=== PATIENT | female | born 1990 | race Caucasian/White ===

== ENCOUNTER 2022-04-15 18:00 | Emergency (ER) | payer BC, OTHER ==
[2022-04-15 18:32] VITALS: BP 145/98; PULSE 85; RESP 18; TEMP 98.1; BMI 20.9
[2022-04-15] MEDS ORDERED: KETOROLAC TROMETHAMINE 15 MG/ML VIAL IVPUSH ONE (18:34)
[2022-04-15] MEDS ORDERED: MAG HYDROX/AL HYDROX/SIMETH -MYLANTA- ORAL SUSPENSION PO ONE (18:45)
[2022-04-15] MEDS ORDERED: FAMOTIDINE 20 MG/50 ML IVPB 20 MG/50 ML MG IVPB ONE ×2 (18:45→19:00)
[2022-04-15] MEDS ORDERED: SODIUM CHLORIDE 0.9% 500 ML INFUS.BAG IV ONE (18:53)
[2022-04-15] MEDS ORDERED: KETOROLAC TROMETHAMINE 15 MG/ML VIAL ONE (19:00)
[2022-04-15] MEDS ORDERED: MAG HYDROX/AL HYDROX/SIMETH 30 ML UNIT-DOSE CUP ONE (19:01)
[2022-04-15 19:18] LABS: ALBUMIN 3.8 g/dl (3.4-5.0); ALK PHOS 41 U/L (45-117); ANION GAP 7 MMOL/L (8-16); BILIRUBIN,TOTAL 0.8 mg/dl (0.2-1); CALCIUM 8.6 mg/dl (8.5-10); CHLORIDE 102 mmol/L (98-107); CO2 24 mmol/L (21-32); CREATININE 0.8 mg/dl (0.55-1.3); GLUCOSE,RANDOM 81 mg/dl (74-106); MAGNESIUM 1.7 mg/dL (1.8-2.4); SGOT/AST 15 U/L (15-37); SGPT/ALT 13 U/L (13-61); SODIUM 133 mmol/L (136-145); TOT PROT 6.9 g/dl (6.4-8.2)
[2022-04-15 19:23] LABS: HEMATOCRIT 35.1 % (32.4-45.2); MCH 30.9 pg (25.7-33.7); MCHC 34.2 g/dl (32.0-36.0); MEAN CELL VOLUME 90.2 fl (80-96); MEAN PLT VOLUME 7.6 fl (7.5-11.1); PLATELET COUNT 229.8 10^3/uL (134-434); RBC 3.89 10^6/uL (3.60-5.2); RDW 13.4 % (11.6-15.6); WHITE BLOOD COUNT 14.5 10^3/uL (4.0-10.8)
[2022-04-15 19:29] LABS: PLATELET ESTIMATE ADEQUATE
[2022-04-15 19:34] LABS: EPITHELIAL CELLS FEW /hpf
[2022-04-15] MEDS ORDERED: MAGNESIUM SULF 50% (8.12 MEQ/2 ML-1 GM VIAL) IVPB ONE (20:02)
[2022-04-15 20:06] LABS: LIPASE 117 U/L (73-393)
[2022-04-15] MEDS ORDERED: POTASSIUM CHLORIDE TABS 20 MEQ TABLET.ER (FP) PO ONE ×2 (20:06→20:07)
[2022-04-15] MEDS ORDERED: MAGNESIUM 1GM/D5W - 1 GM/100 ML IVPB IVPB ONE (20:07)
== END 2022-04-15 21:27 | disposition home or self-care (01) ==
LOC: FER 18:00
PROC: 3E033GC Introduction of Other Therapeutic Substance into Peripheral Vein, Percutaneous Approach (ICD-10-PCS; principal; 2022-04-15)
PROC: 3E0333Z Introduction of Anti-inflammatory into Peripheral Vein, Percutaneous Approach (ICD-10-PCS; 2022-04-15)
PROC: 3E033GC Introduction of Other Therapeutic Substance into Peripheral Vein, Percutaneous Approach (ICD-10-PCS; 2022-04-15)
DX: E83.42 Hypomagnesemia (principal)
CPT/HCPCS: 36415; 71046-TC-FY; 80053; 81003; 81015; 83690; 83735; 84484; 84703; 85027; 87086; 93005; 93971-TC; 99285-25